=== PATIENT | male | born 1995 | race African-American/Black ===

== ENCOUNTER 2024-01-26 21:44 | Emergency (ER) | payer MEDICAID, OTHER ==
[~2024-01-26] VITALS: Ht 172.7 cm; Wt 84.0 kg
[2024-01-26 22:38] LABS: Basophils # (auto) 0.1 10 ^3/uL (0-0.2); Basophils % (auto) 0.7 % (0.0-2.0); Eosinophils # (auto) 0 10 ^3/uL (0-0.8); Eosinophils % (auto) 0.3 % (0.0-7.0); Hemoglobin 13.9 g/dL (13.5-17.5); Lymphocytes # (auto) 1.7 10 ^3/uL (0.4-5.4); Lymphocytes % (auto) 18.5 % (10.0-50.0); Mean Corpuscular Hemoglobin 28.7 pg (28.0-32.0); Mean Corpuscular Volume 84.6 fL (80.0-100.0); Monocytes # (auto) 0.4 10 ^3/uL (0-1.3); Monocytes % (auto) 4.7 % (0.0-12.0); Neutrophils # (auto) 7.1 10 ^3/uL (1.6-8.6); Neutrophils % (auto) 75.8 % (37.0-80.0); Nucleated Red Blood Cells % 0.1 %; Red Blood Cells 4.85 10^6/uL (4.5-5.90); White Blood Cell 9.3 10^3/uL (4.4-10.8)
[2024-01-26 22:43] LABS: Urine Bacteria None Seen /hpf (None Seen)
[2024-01-26 22:56] LABS: Urine Blood Negative /uL (Negative); Urine Clarity Clear (Clear); Urine Color Yellow (Yellow); Urine Mucus FEW (None Seen); Urine Protein, UAD TRACE (Negative); Urine Specific Gravity 1.026 (1.001-1.035); Urine Urobilinogen 2 mg/dL (Negative); Urine WBC 6 /hpf (0 - 3)
[2024-01-26 23:00] VITALS: TEMP 98.7
[2024-01-26] MEDS: MORPHINE SULFATE 4 MG/ML SYR/VIAL IV ONE (23:01)
[2024-01-26] MEDS: ONDANSETRON HCL 4 MG/2 ML VIAL IV ONE (23:02)
[2024-01-26 23:06] LABS: Alanine Aminotransferase 80 U/L (7-40); Albumin 4.8 g/dL (3.2-4.8); Alkaline Phosphatase 70 U/L (46-116); Anion Gap 7 (5-15); Aspartate Aminotransferase 122 U/L (13-40); BUN/Creatinine Ratio 11.7 (10.0-20.0); Bilirubin, Total 0.8 mg/dL (0.2-1.0); Blood Urea Nitrogen 14 mg/dL (9-23); Calcium 10.1 mg/dL (8.7-10.4); Carbon Dioxide 25 mmol/L (20-30); Chloride 106 mmol/L (98-107); Glucose 113 mg/dL (74-106); Potassium 3.3 mmol/L (3.5-5.1); Sodium 138 mmol/L (136-145); Total Protein 7.3 g/dL (5.7-8.2)
[2024-01-26 23:15] VITALS: PULSE 79; RESP 16; O2SAT 98
[2024-01-26 23:53] VITALS: O2SAT 99
[2024-01-26 23:55] VITALS: BP 126/68; PULSE 75; RESP 16
[2024-01-27] MEDS ORDERED: CYCL-839 PO (01:33)
[2024-01-27] MEDS ORDERED: IBUP-1455 PO (01:33)
[2024-01-27] MEDS: POTASSIUM CHL 20 Meq TABLET PO ONE (01:43)
== END 2024-01-27 01:50 | disposition home or self-care (01) ==
LOC: ER 21:44 → EDBD 21:44 → ER 01-27 01:50
DX: R10.12 Left upper quadrant pain (principal)
CPT/HCPCS: 36415; 74176; 80053; 81001; 83690; 85025; 96374; 96375; 99285; J2270; J2405